=== PATIENT | male | born 1935 | race Caucasian/White ===

== ENCOUNTER 2022-09-28 10:04 | Day surgery (SDC) | payer MEDICARE, BC ==
[2022-09-28] MEDS ORDERED: Sodium Chloride 0.9% 10 ML Syringe IV ONE (10:05)
[2022-09-28] MEDS ORDERED: Dexamethasone 4 MG/ML SDV IV ONE (10:05)
[2022-09-28] MEDS ORDERED: Midazolam 1 MG/ML 2 ML SDV IV ONE (10:05)
[2022-09-28] MEDS ORDERED: Ondansetron 4 MG/2 ML SDV IVPUSH PRN (10:15)
[2022-09-28] MEDS ORDERED: Povidone-Iodine 5% Sterile Ophth Soln 30 ML Bottle EYELF ONE ×2 (10:15→10:57)
[2022-09-28] MEDS ORDERED: Proparacaine 0.5% Ophth Soln 15 ML Bottle EYELF ONE ×2 (10:15→10:56)
[2022-09-28] MEDS ORDERED: Phenylephrine 10% Ophth Soln 5 ML Bot EYELF PRN (10:15)
[2022-09-28] MEDS ORDERED: Moxifloxacin 0.5% Ophth Soln 3 ML Bottle EYELF ONE (10:15)
[2022-09-28] MEDS ORDERED: Cataract Ophth Solution EYELF ONE (10:15)
[2022-09-28] MEDS ORDERED: Tropicamide 1% Ophth Soln 15 ML Bottle EYELF ONE (10:15)
[2022-09-28] MEDS ORDERED: Timolol Maleate 0.5% Ophth Soln 5 ML Bottle EYELF ONE (10:15)
[2022-09-28] MEDS ORDERED: Sodium Chloride 0.9% 10 ML Syringe FLUSH PRN (10:15)
[2022-09-28] MEDS ORDERED: Acetaminophen 325 MG Tab PO PRN (10:15)
[2022-09-28] MEDS ORDERED: Acetaminophen/Codeine 300-30 MG Tab PO PRN (10:15)
[2022-09-28] MEDS ORDERED: Lidocaine 1% 30 ML SDV ONE (11:01)
[2022-09-28] MEDS ORDERED: Chondroitin Sulfate/Hyaluronate Sodium Ophth Inj 0.75 ML Syringe EYELF ONE (11:02)
[2022-09-28] MEDS ORDERED: Balanced Salt Solution Ophth Irrig 500 ML Bottle IOCULAR ONE (11:02)
[2022-09-28] MEDS ORDERED: Apraclonidine 0.5% Ophth Soln 5 ML Bot EYELF ONE (11:13)
[2022-09-28] MEDS ORDERED: Diclofenac Sodium 0.1% Ophth Soln 5 ML Bottle EYELF ONE (11:14)
[2022-09-28] MEDS ORDERED: Vancomycin 500 MG SDV EYELF ONE (11:14)
[2022-09-28] MEDS ORDERED: Dexamethasone/Neomycin/Polymyxin B Ophth Oint 3.5 GM Tube EYELF ONE (11:15)
== END 2022-09-28 11:50 | disposition home or self-care (01) ==
LOC: DL.SDS 10:04
PROVIDERS: ATTEND Ophthalmology
DX: H25.812 Combined forms of age-related cataract, left eye (principal); J44.9 Chronic obstructive pulmonary disease, unspecified; K21.9 Gastro-esophageal reflux disease without esophagitis; E78.00 Pure hypercholesterolemia, unspecified; I10 Essential (primary) hypertension; I48.0 Paroxysmal atrial fibrillation; E03.8 Other specified hypothyroidism; Z98.890 Other specified postprocedural states; Z87.891 Personal history of nicotine dependence; Z79.899 Other long term (current) drug therapy; Z79.890 Hormone replacement therapy
CPT/HCPCS: 66982; A9270; J1100; J2250; J3370; J3490; 00142; V2632

== ENCOUNTER 2022-10-12 09:54 | Day surgery (SDC) | payer MEDICARE, BC ==
[2022-10-12] MEDS: Proparacaine 0.5% Ophth Soln 15 ML Bottle EYERT ONE ×3 (07:34→11:24)
[2022-10-12] MEDS: Povidone-Iodine 5% Sterile Ophth Soln 30 ML Bottle EYERT ONE ×3 (07:35→11:25)
[2022-10-12] MEDS: Diclofenac Sodium 0.1% Ophth Soln 5 ML Bottle EYERT ONE ×2 (07:35→11:26)
[2022-10-12] MEDS: Apraclonidine 0.5% Ophth Soln 5 ML Bot EYERT ONE ×2 (07:35→11:26)
[2022-10-12] MEDS: Dexamethasone/Neomycin/Polymyxin B Ophth Oint 3.5 GM Tube EYERT ONE ×2 (07:36→11:27)
[2022-10-12] MEDS: Balanced Salt Solution Ophth Irrig 500 ML Bottle IOCULAR ONE ×2 (07:37→11:29)
[2022-10-12] MEDS: Vancomycin 500 MG SDV EYERT ONE ×2 (07:37→11:30)
[2022-10-12] MEDS: Lidocaine 1% 30 ML SDV ONE ×2 (07:37→11:28)
[2022-10-12] MEDS: Chondroitin Sulfate/Hyaluronate Sodium Ophth Inj 0.75 ML Syringe EYERT ONE ×2 (07:38→11:30)
[2022-10-12] MEDS ORDERED: Midazolam 1 MG/ML 2 ML SDV IV ONE (09:55)
[2022-10-12] MEDS ORDERED: Dexamethasone 4 MG/ML SDV IV ONE (09:55)
[2022-10-12] MEDS ORDERED: Sodium Chloride 0.9% 10 ML Syringe IV ONE (09:55)
[2022-10-12] MEDS ORDERED: Ondansetron 4 MG/2 ML SDV IVPUSH PRN (10:15)
[2022-10-12] MEDS ORDERED: Acetaminophen/Codeine 300-30 MG Tab PO PRN (10:15)
[2022-10-12] MEDS ORDERED: Acetaminophen 325 MG Tab PO PRN (10:15)
[2022-10-12] MEDS: Sodium Chloride 0.9% 10 ML Syringe FLUSH PRN (10:42)
[2022-10-12] MEDS: Moxifloxacin 0.5% Ophth Soln 3 ML Bottle EYERT ONE (10:45)
[2022-10-12] MEDS: Tropicamide 1% Ophth Soln 15 ML Bottle EYERT ONE (10:46)
[2022-10-12] MEDS: Phenylephrine 10% Ophth Soln 5 ML Bot EYERT ONE (10:46)
[2022-10-12] MEDS: Timolol Maleate 0.5% Ophth Soln 5 ML Bottle EYERT ONE (10:47)
[2022-10-12] MEDS: Cataract Ophth Solution EYERT ONE (10:47)
== END 2022-10-12 12:05 | disposition home or self-care (01) ==
LOC: DL.SDS 09:54
PROVIDERS: ATTEND Ophthalmology
DX: H25.811 Combined forms of age-related cataract, right eye (principal); J44.9 Chronic obstructive pulmonary disease, unspecified; K21.9 Gastro-esophageal reflux disease without esophagitis; I10 Essential (primary) hypertension; E03.9 Hypothyroidism, unspecified; I48.0 Paroxysmal atrial fibrillation; E78.00 Pure hypercholesterolemia, unspecified; Z87.891 Personal history of nicotine dependence; Z98.890 Other specified postprocedural states; Z79.899 Other long term (current) drug therapy
CPT/HCPCS: 00120; 00142; A9270-GY; J1100; J2250; J3370; J3490; V2632

== ENCOUNTER → 2023-01-03 | Day surgery (SDC) | payer MEDICARE, BC ==
[~2023-01-03] MED LIST: Dextrose 5%-0.45% NaCl 1,000 ML IV SCH; Midazolam 1 MG/ML 2 ML SDV IV ONE; Midazolam 1 MG/ML 2 ML SDV ONE; fentaNYL 100 MCG/2 ML SDV IV ONE; fentaNYL 100 MCG/2 ML SDV ONE
== END | disposition home or self-care (01) ==
LOC: DL.ENDO 05:22
PROVIDERS: ATTEND Internal Medicine Gastroenterology
DX: D48.1 Neoplasm of uncertain behavior of connective and other soft tissue (principal); K29.50 Unspecified chronic gastritis without bleeding; D50.9 Iron deficiency anemia, unspecified; K44.9 Diaphragmatic hernia without obstruction or gangrene; K31.9 Disease of stomach and duodenum, unspecified; I10 Essential (primary) hypertension; K21.9 Gastro-esophageal reflux disease without esophagitis; I48.91 Unspecified atrial fibrillation; E78.00 Pure hypercholesterolemia, unspecified; E03.9 Hypothyroidism, unspecified; Z88.0 Allergy status to penicillin; Z88.1 Allergy status to other antibiotic agents; Z79.899 Other long term (current) drug therapy; Z79.82 Long term (current) use of aspirin
CPT/HCPCS: 87077; J2250; J3010; J7042

== ENCOUNTER 2023-10-25 10:55 | Inpatient (IN) | payer MEDICARE, BC ==
[2023-10-25] MEDS ORDERED: Sodium Chloride 0.9% 10 ML Syringe FLUSH PRN (11:16)
[2023-10-25 11:28] LABS: BASOPHILS PERCENT AUTO 0.1 % (0.0-1.0); EOSINOPHILS PERCENT AUTO 0.2 % (1.0-3.0); HEMATOCRIT 38.9 % (40.0-54.0); HEMOGLOBIN 13.2 g/dL (14.0-18.0); MEAN CORPUSCULAR HEMOGLOBIN 34.4 pg (27.0-34.0); MEAN CORPUSCULAR HGB CONC 33.9 g/dL (33.0-35.0); MEAN CORPUSCULAR VOLUME 101.3 fL (80-100); MONOCYTES PERCENT AUTO 6.4 % (2-8); NEUTROPHILS PERCENT AUTO 89.3 % (42.2-75.2); PLATELET COUNT,PLT 230 10^3/uL (150-450); RED BLOOD CELL COUNT 3.84 10^6/uL (4.6-6.2); WHITE BLOOD CELL COUNT,WBC 27.4 10^3/uL (5.0-10.0)
[2023-10-25 11:45] LABS: B-TYPE NATRIURETIC PEPTIDE,BNP 414 pg/ml (0-100)
[2023-10-25 11:48] LABS: A/G RATIO 0.81; ALANINE AMINOTRANSFERASE,ALT 34 U/L (16-63); ALBUMIN 2.9 g/dL (3.4-5.0); ALKALINE PHOSPHATASE 68 U/L (46-116); ANION GAP 13.7 mEq/L (7-13); ASPARTATE AMNIOTRANSFERASE,AST 43 U/L (15-37); BILIRUBIN TOTAL 1.4 mg/dL (0.2-1.0); BLOOD UREA NITROGEN,BUN 28 mg/dL (7-18); BUN/CREATININE RATIO 17.9 (No establ ref range); C-REACTIVE PROTEIN 11.52 ng/dL (<=0.50); CALCIUM 8.9 mg/dL (8.5-10.1); CARBON DIOXIDE,CO2 26 mmol/L (21-32); CHLORIDE,CL 101 mmol/L (98-107); CREATININE 1.56 mg/dL (0.70-1.30); ESTIMATED GFR 42 mL/min (>=60); GLUCOSE RANDOM 100 mg/dL (70-99); MAGNESIUM 1.5 mg/dL (1.8-2.4); POTASSIUM,K 4.7 mmol/L (3.5-5.1); PROTEIN TOTAL,TP 6.5 g/dL (6.4-8.2); SODIUM,NA 136 mmol/L (136-145)
[2023-10-25] MEDS ORDERED: Sodium Chloride 0.9% 1,000 ML IV ONE (11:50)
[2023-10-25 11:52] LABS: APPEARANCE,URINE CLEAR (CLEAR); BILIRUBIN,URINE SMALL (NEGATIVE); COLOR,URINE DARK YELLOW (YELLOW); GLUCOSE,URINE NEGATIVE (NEGATIVE); KETONES,URINE TRACE (NEGATIVE); LEUKOCYTE ESTERASE,URINE NEGATIVE (NEGATIVE); NITRITE,URINE NEGATIVE (NEGATIVE); OCCULT BLOOD,URINE NEGATIVE (NEGATIVE); PH,URINE 5.5 (5.0-9.0); PROTEIN,URINE 30 (NEGATIVE); UROBILINOGEN,URINE 0.2 mg/dL (0.2-1.0)
[2023-10-25 11:56] LABS: LACTIC ACID 2.5 mmol/L (0.4-2.0)
[2023-10-25] MEDS ORDERED: Piperacillin/Tazobactam 3.375 GM in Sodium Chloride 0.9% 100 ML IV ONE (12:01)
[2023-10-25 12:04] LABS: AMORPHOUS SEDIMENT,URINE FEW /HPF (NOT SEEN); BACTERIA,URINE FEW /HPF (0-FEW/HPF); EPITHELIAL CELLS,URINE FEW /HPF (NOT SEEN); HYALINE CASTS,URINE MODERATE; MUCUS,URINE MODERATE /LPF (NOT SEEN); RBC,URINE 0-5 /HPF (0-5); WBC,URINE 0-5 /HPF (0-5/HPF)
[2023-10-25 12:05] LABS: FINE GRANULAR CASTS,URINE RARE /LPF (NOT SEEN)
[2023-10-25] MEDS ORDERED: Acetaminophen/oxyCODONE 325-5 MG Tab PO PRN (14:02)
[2023-10-25] MEDS ORDERED: Polyethylene Glycol 3350 Powder 17 GM Packet PO PRN (14:02)
[2023-10-25] MEDS ORDERED: Albuterol 0.083% 2.5 MG/3 ML Neb Soln NEB PRN (14:02)
[2023-10-25] MEDS ORDERED: Ondansetron 4 MG/2 ML SDV IVPUSH PRN (14:02)
[2023-10-25] MEDS ORDERED: HYDROmorphone 0.5 MG/0.5 ML Syringe IVPUSH PRN (14:02)
[2023-10-25] MEDS ORDERED: Acetaminophen 325 MG Tab PO PRN (14:02)
[2023-10-25] MEDS ORDERED: Sennosides/Docusate Sodium 50-8.6 MG Tab PO PRN (14:02)
[2023-10-25] MEDS ORDERED: Magnesium Hydroxide 400 MG/5 ML Susp 30 ML Cup PO PRN (14:02)
[2023-10-25] MEDS ORDERED: guaiFENesin/Dextromethorphan 100-10 MG/5 ML Soln 5 ML Cup PO PRN (14:15)
[2023-10-25] MEDS ORDERED: guaiFENesin 600 MG Tab.ER PO ONE (14:15)
[2023-10-25] MEDS: Lactated Ringers 1,000 ML IV SCH (15:05)
[2023-10-25] MEDS: Piperacillin/Tazobactam 3.375 GM in Sodium Chloride 0.9% 100 ML IV SCH (17:53)
[2023-10-25] MEDS ORDERED: Midodrine 5 MG Tab PO PRN (18:13)
[2023-10-25] MEDS ORDERED: Sodium Chloride 0.9% 1,000 ML IV SCH (18:15)
[2023-10-25] MEDS ORDERED: Magnesium Sulfate/Water 2 GM in Premix Bag 1 BAG IV ONE (18:30)
[2023-10-25 19:03] LABS: CORONAVIRUS COVID-19 NAA NEGATIVE (NEGATIVE); INFLUENZA A NAA NEGATIVE (NEGATIVE); INFLUENZA B NAA NEGATIVE (NEGATIVE); RESPIRATORY SYNCYTIAL VIR NAA NEGATIVE (NEGATIVE)
[2023-10-25] MEDS: guaiFENesin 600 MG Tab.ER PO SCH (21:06)
[2023-10-25] MEDS: Formoterol/Mometasone 100-5 MCG 8.8 GM Inhaler IH SCH (21:15)
[2023-10-26] MEDS: Piperacillin/Tazobactam 3.375 GM in Sodium Chloride 0.9% 100 ML IV SCH ×4 (00:57→19:00)
[2023-10-26] MEDS: Levothyroxine 125 MCG Tab PO SCH (06:03)
[2023-10-26] MEDS: Formoterol/Mometasone 100-5 MCG 8.8 GM Inhaler IH SCH ×4 (06:15→21:00)
[2023-10-26 06:45] LABS: HEMATOCRIT 32.3 % (40.0-54.0); HEMOGLOBIN 10.8 g/dL (14.0-18.0); MEAN CORPUSCULAR HEMOGLOBIN 34.1 pg (27.0-34.0); MEAN CORPUSCULAR HGB CONC 33.4 g/dL (33.0-35.0); MEAN CORPUSCULAR VOLUME 101.9 fL (80-100); PLATELET COUNT,PLT 204 10^3/uL (150-450); RED BLOOD CELL COUNT 3.17 10^6/uL (4.6-6.2); WHITE BLOOD CELL COUNT,WBC 12.7 10^3/uL (5.0-10.0)
[2023-10-26 07:02] LABS: BASOPHILS PERCENT AUTO 0.2 % (0.0-1.0); EOSINOPHILS PERCENT AUTO 2.6 % (1.0-3.0); LYMPHOCYTES PERCENT AUTO 7.3 % (20.5-50.1); MONOCYTES PERCENT AUTO 8.3 % (2-8); NEUTROPHILS PERCENT AUTO 81.6 % (42.2-75.2)
[2023-10-26 07:16] LABS: ALBUMIN 2.5 g/dL (3.4-5.0); ANION GAP 10.6 mEq/L (7-13); BILIRUBIN TOTAL 1.1 mg/dL (0.2-1.0); BUN/CREATININE RATIO 17.6 (No establ ref range); C-REACTIVE PROTEIN 15.57 ng/dL (<=0.50); CALCIUM 8.4 mg/dL (8.5-10.1); CREATININE 1.36 mg/dL (0.70-1.30); EST CRCL DRUG DOSING (CG) 35.63 mL/min; MAGNESIUM 1.9 mg/dL (1.8-2.4); POTASSIUM,K 3.6 mmol/L (3.5-5.1); PROTEIN TOTAL,TP 5.6 g/dL (6.4-8.2); T4 FREE 1.79 ng/dL (0.76-1.46); TSH ULTRASENSITIVE 0.29 uIU/mL (0.36-3.74)
[2023-10-26 07:19] LABS: A/G RATIO 0.81
[2023-10-26 07:52] LABS: EOSINOPHILS PERCENT MAN 3 % (1-3); LYMPHOCYTES PERCENT MAN 9 % (20-50); MONOCYTES PERCENT MAN 7 % (2-8); SEG NEUTROPHILS PERCENT MAN 81 % (42-75)
[2023-10-26] MEDS: Omeprazole 20 MG Cap.CR PO SCH (08:25)
[2023-10-26] MEDS: Furosemide 20 MG Tab PO SCH (08:25)
[2023-10-26] MEDS: guaiFENesin 600 MG Tab.ER PO SCH ×2 (08:26→21:11)
[2023-10-26] MEDS: Ferrous Sulfate 325 MG Tab PO SCH (08:26)
[2023-10-26] MEDS: Lactated Ringers 1,000 ML IV SCH (16:01)
[2023-10-27] MEDS: Piperacillin/Tazobactam 3.375 GM in Sodium Chloride 0.9% 100 ML IV SCH ×4 (00:30→17:32)
[2023-10-27] MEDS: Levothyroxine 125 MCG Tab PO SCH (05:00)
[2023-10-27 06:37] LABS: BASOPHILS PERCENT AUTO 0.3 % (0.0-1.0); EOSINOPHILS PERCENT AUTO 4.6 % (1.0-3.0); HEMATOCRIT 30.3 % (40.0-54.0); HEMOGLOBIN 10.7 g/dL (14.0-18.0); LYMPHOCYTES PERCENT AUTO 10.2 % (20.5-50.1); MEAN CORPUSCULAR HEMOGLOBIN 35.2 pg (27.0-34.0); MEAN CORPUSCULAR HGB CONC 35.3 g/dL (33.0-35.0); MEAN CORPUSCULAR VOLUME 99.7 fL (80-100); MONOCYTES PERCENT AUTO 12.9 % (2-8); PLATELET COUNT,PLT 194 10^3/uL (150-450); RED BLOOD CELL COUNT 3.04 10^6/uL (4.6-6.2); WHITE BLOOD CELL COUNT,WBC 8.7 10^3/uL (5.0-10.0)
[2023-10-27 06:55] LABS: ALBUMIN 2.3 g/dL (3.4-5.0); ANION GAP 12.4 mEq/L (7-13); BUN/CREATININE RATIO 12.2 (No establ ref range); C-REACTIVE PROTEIN 8.63 ng/dL (<=0.50); CALCIUM 8.3 mg/dL (8.5-10.1); CREATININE 1.39 mg/dL (0.70-1.30); EST CRCL DRUG DOSING (CG) 34.86 mL/min; MAGNESIUM 1.7 mg/dL (1.8-2.4); POTASSIUM,K 3.4 mmol/L (3.5-5.1); PROTEIN TOTAL,TP 5.3 g/dL (6.4-8.2)
[2023-10-27 06:58] LABS: A/G RATIO 0.77
[2023-10-27] MEDS: Formoterol/Mometasone 100-5 MCG 8.8 GM Inhaler IH SCH ×2 (08:56→20:38)
[2023-10-27] MEDS: Furosemide 20 MG Tab PO SCH (09:15)
[2023-10-27] MEDS: Ferrous Sulfate 325 MG Tab PO SCH (09:15)
[2023-10-27] MEDS: guaiFENesin 600 MG Tab.ER PO SCH ×2 (09:15→20:37)
[2023-10-27] MEDS: Omeprazole 20 MG Cap.CR PO SCH (09:15)
[2023-10-27] MEDS ORDERED: Magnesium Sulfate/Water 2 GM in Premix Bag 1 BAG IV ONE (11:00)
[2023-10-27] MEDS ORDERED: Potassium Chloride 10 MEQ Tab.ER PO ONE (11:00)
[2023-10-27] MEDS ORDERED: Cholecalciferol (Vitamin D3) 25 MCG Tab PO ONE (12:04)
[2023-10-27] MEDS: Apixaban 5 MG Tab PO SCH (20:37)
[2023-10-28] MEDS: Piperacillin/Tazobactam 3.375 GM in Sodium Chloride 0.9% 100 ML IV SCH ×2 (00:54→05:52)
[2023-10-28] MEDS: Levothyroxine 125 MCG Tab PO SCH (05:52)
[2023-10-28 06:23] LABS: BASOPHILS PERCENT AUTO 0.7 % (0.0-1.0); EOSINOPHILS PERCENT AUTO 6.3 % (1.0-3.0); HEMATOCRIT 31.2 % (40.0-54.0); LYMPHOCYTES PERCENT AUTO 14.5 % (20.5-50.1); MEAN CORPUSCULAR HEMOGLOBIN 35.1 pg (27.0-34.0); MEAN CORPUSCULAR HGB CONC 35.3 g/dL (33.0-35.0); MEAN CORPUSCULAR VOLUME 99.7 fL (80-100); MONOCYTES PERCENT AUTO 14.3 % (2-8); NEUTROPHILS PERCENT AUTO 64.2 % (42.2-75.2); PLATELET COUNT,PLT 216 10^3/uL (150-450); RED BLOOD CELL COUNT 3.13 10^6/uL (4.6-6.2); WHITE BLOOD CELL COUNT,WBC 8.3 10^3/uL (5.0-10.0)
[2023-10-28 06:44] LABS: A/G RATIO 0.73; ALBUMIN 2.4 g/dL (3.4-5.0); ANION GAP 10.5 mEq/L (7-13); BILIRUBIN TOTAL 0.9 mg/dL (0.2-1.0); BUN/CREATININE RATIO 8.4 (No establ ref range); C-REACTIVE PROTEIN 6.86 ng/dL (<=0.50); CALCIUM 8.2 mg/dL (8.5-10.1); CREATININE 1.31 mg/dL (0.70-1.30); EST CRCL DRUG DOSING (CG) 36.98 mL/min; POTASSIUM,K 3.5 mmol/L (3.5-5.1); PROTEIN TOTAL,TP 5.7 g/dL (6.4-8.2)
[2023-10-28] MEDS ORDERED: Cholecalciferol (Vitamin D3) 25 MCG Tab PO SCH (09:00)
[2023-10-28] MEDS ORDERED: Ascorbic Acid 500 MG Tab PO SCH (09:00)
[2023-10-28] MEDS: Formoterol/Mometasone 100-5 MCG 8.8 GM Inhaler IH SCH (09:06)
[2023-10-28] MEDS: Ferrous Sulfate 325 MG Tab PO SCH (09:32)
[2023-10-28] MEDS: Omeprazole 20 MG Cap.CR PO SCH (09:32)
[2023-10-28] MEDS: Apixaban 5 MG Tab PO SCH (09:32)
[2023-10-28] MEDS: guaiFENesin 600 MG Tab.ER PO SCH (09:33)
[2023-10-28] MEDS: Furosemide 20 MG Tab PO SCH (09:33)
[2023-10-28] MEDS ORDERED: IMATINIB MESYLATE 100 MG PO SCH (12:00)
== END 2023-10-28 11:55 | disposition home or self-care (01) | DRG 871 ==
LOC: DL.ED 10:55 → DL.MS 12:27
PROVIDERS: ADMIT Internal Medicine; ATTEND Internal Medicine
DX: A41.9 Sepsis, unspecified organism (principal); J18.9 Pneumonia, unspecified organism; J98.11 Atelectasis; N17.9 Acute kidney failure, unspecified; E87.20 Acidosis, unspecified; J44.0 Chronic obstructive pulmonary disease with (acute) lower respiratory infection; E78.00 Pure hypercholesterolemia, unspecified; I48.0 Paroxysmal atrial fibrillation; K21.9 Gastro-esophageal reflux disease without esophagitis; E03.9 Hypothyroidism, unspecified; I11.0 Hypertensive heart disease with heart failure; F41.9 Anxiety disorder, unspecified; Z96.22 Myringotomy tube(s) status; J40 Bronchitis, not specified as acute or chronic; H91.90 Unspecified hearing loss, unspecified ear; I50.9 Heart failure, unspecified; D53.9 Nutritional anemia, unspecified; L27.0 Generalized skin eruption due to drugs and medicaments taken internally; T45.1X5A Adverse effect of antineoplastic and immunosuppressive drugs, initial encounter; J98.4 Other disorders of lung; E83.42 Hypomagnesemia; E87.6 Hypokalemia; Z79.01 Long term (current) use of anticoagulants; Z98.49 Cataract extraction status, unspecified eye; Z98.890 Other specified postprocedural states; Z79.899 Other long term (current) drug therapy; Z87.891 Personal history of nicotine dependence; Z86.010 Personal history of colon polyps; Z88.0 Allergy status to penicillin; Z88.8 Allergy status to other drugs, medicaments and biological substances; Z11.52 Encounter for screening for COVID-19
CPT/HCPCS: 0241U; 36415; 76770; 80053; 80202; 82306; 83605; 83735; 84439; 84443; 84484; 85025; 86140; 87070; 87205; 94010; 94060; 94664; 94667; 94668; 97161; 97165; 99223; 99232; 99233; 99238; 71046; 81001; 83880; 84145; 87040; 93005; 93010; 96374; 99285; 99285-25; A9270-GY; J2543; J3370; J3475; J3490; J7030; J7050; J7120